=== PATIENT | female | born 1980 | race Caucasian/White ===

== ENCOUNTER 2017-05-06 13:51 | Emergency (ER) | payer BC ==
[~2017-05-06] VITALS: Ht 162.5 cm; Wt 79.4 kg
[~2017-05-06 13:51] MED LIST: ALLEGRA-D 12 HO1 TE1 PO; AMOXICILLIN500 MG PO; AMOXIL500 MG PO; COLACE100 MG PO; DAYPRO600 M1 PO; FERROUS SULFAT325 M1 PO; MEDROL DOSEPAK4 MG PO; Motrin,Rufen800 MG; PRENATAL1 TA1 PO; SKELAXIN800 MG PO; SYNTHROID0.1 MG PO; TRAMADOL HCL50 MG PO; ZITHROMAX Z PA250 MG PO; ZITHROMAX250 MG PO; ZYRTEC10 MG PO
[2017-05-06 13:55] VITALS: BP 136/67
[2017-05-06] MEDS ORDERED: NAPROSYN500 MG PO (14:13)
== END 2017-05-06 15:27 | disposition home or self-care (01) ==
LOC: ED 13:51
DX: S60.011A Contusion of right thumb without damage to nail, initial encounter (principal); R03.0 Elevated blood-pressure reading, without diagnosis of hypertension; W22.8XXA Striking against or struck by other objects, initial encounter; Y93.89 Activity, other specified; Z88.2 Allergy status to sulfonamides; Y92.9 Unspecified place or not applicable; Y99.9 Unspecified external cause status

== ENCOUNTER 2017-10-30 21:16 | Emergency (ER) | payer BC ==
[~2017-10-30] VITALS: Ht 162.5 cm; Wt 77.1 kg
[~2017-10-30 21:16] MED LIST changes: +NAPROSYN500 MG PO; +SYNTHROID,LEV125 MCG PO; -SYNTHROID0.1 MG PO
[2017-10-30 21:17] VITALS: BP 111/65
== END 2017-10-30 23:41 | disposition home or self-care (01) ==
LOC: ED 21:16
DX: M25.552 Pain in left hip (principal); Z79.899 Other long term (current) drug therapy; Z88.2 Allergy status to sulfonamides

== ENCOUNTER 2018-06-03 22:55 | Emergency (ER) | payer BC ==
[2018-06-03 22:57] VITALS: BP 120/80
[2018-06-04] MEDS ORDERED: Motrin,Rufen800 MG PO (00:43)
[2018-06-04] MEDS ORDERED: DOXYCYCLINE100 M3 PO (00:43)
== END 2018-06-04 01:00 | disposition home or self-care (01) ==
LOC: ED 22:55
DX: S06.0X0A Concussion without loss of consciousness, initial encounter (principal); F17.200 Nicotine dependence, unspecified, uncomplicated; Z88.2 Allergy status to sulfonamides; Z79.899 Other long term (current) drug therapy; W50.0XXA Accidental hit or strike by another person, initial encounter; Y93.66 Activity, soccer; Y92.89 Other specified places as the place of occurrence of the external cause; Y99.8 Other external cause status

== ENCOUNTER 2018-09-24 20:14 | Emergency (ER) | payer BC ==
[~2018-09-24] VITALS: Ht 162.5 cm; Wt 68.0 kg
[~2018-09-24 20:14] MED LIST changes: +DOXYCYCLINE100 M3 PO; +Motrin,Rufen800 MG PO
[2018-09-24 20:16] VITALS: BP 117/76
== END 2018-09-24 21:46 | disposition home or self-care (01) ==
LOC: ED 20:14
DX: S90.31XA Contusion of right foot, initial encounter (principal); Z79.899 Other long term (current) drug therapy; Z88.2 Allergy status to sulfonamides; W21.02XA Struck by soccer ball, initial encounter; Y93.66 Activity, soccer; Y92.89 Other specified places as the place of occurrence of the external cause; Y99.8 Other external cause status

== ENCOUNTER 2019-04-04 19:56 | Emergency (ER) | payer BC ==
[~2019-04-04] VITALS: Ht 162.5 cm; Wt 74.8 kg
[2019-04-04 19:58] VITALS: BP 123/80
== END 2019-04-04 21:50 | disposition home or self-care (01) ==
LOC: ED 19:56
DX: R51 Headache (principal); R11.10 Vomiting, unspecified; Z79.899 Other long term (current) drug therapy; Z88.2 Allergy status to sulfonamides

== ENCOUNTER 2020-11-05 17:33 | Emergency (ER) | payer OTHER ==
[~2020-11-05] VITALS: Ht 162.5 cm; Wt 79.4 kg
[2020-11-05 17:39] VITALS: BP 123/75
[2020-11-05 18:20] LABS: BASO % 0.4 % (0.0-1.0); EOS # 0.4 10*3/uL (0.0-0.4); EOS % 3.4 % (1.0-4.0); HEMATOCRIT 40.9 % (37.0-47.0); LYMPH # 2.7 10*3/uL (1.3-4.4); LYMPH % 26.7 % (27.0-41.0); MEAN CELL VOLUME 95.8 fl (81.0-99.0); MEAN CORPUSCULAR HGB 32.6 pg (27.0-31.0); MEAN PLATELET VOLUME 10.6 fl (9.6-12.3); MONO # 0.6 10*3/uL (0.1-1.0); NEUT # 6.5 10*3/uL (2.3-7.9); NEUT % 63.2 % (47.0-73.0); PLATELET COUNT AUTOMATED 275 10*3/uL (130-400); RED BLOOD COUNT 4.27 10*6/uL (4.10-5.10); RED CELL DISTRI WIDTH 11.8 % (0-14.5); WHITE BLOOD COUNT 10.3 10*3/uL (4.8-10.8)
[2020-11-05 18:39] LABS: ALBUMIN 3.5 gm/dl (3.1-4.5); ALKALINE PHOSPHATASE 75 U/L (45-117); BUN 10 mg/dl (7-24); CHLORIDE 105 mmol/L (98-107); CREATININE 1.08 mg/dL (0.55-1.02); LIPASE 85 U/L (73-393); SGOT/AST 14 IU/L (3-35); SGPT/ALT 36 U/L (12-78); SODIUM 139 mmol/L (136-145); TOTAL PROTEIN 7.3 gm/dL (6.4-8.2)
[2020-11-05 19:02] LABS: BILIRUBIN Negative (Negative); BLOOD Trace-Intact (Negative); CLARITY Cloudy (Clear); COLOR Yellow (Yellow); GLUCOSE Negative (Negative); KETONE Negative (Negative); LEUKO ESTERASE Negative (Negative); NITRITE Negative (Negative); SPECIFIC GRAVITY <= 1.005 (1.001-1.030); UROBILINOGEN 0.2 E.U./dl (0.0-1.0)
[2020-11-05 19:17] LABS: BACTERIA 1+; EPITHELIAL CELLS 31-40; WBC 0-2 wbc/hpf (0-5)
[2020-11-05] MEDS ORDERED: MEDROL DOSEPAK4 MG PO (19:37)
== END 2020-11-05 19:46 | disposition home or self-care (01) ==
LOC: ED 17:33
PROVIDERS: Physician Assistant
DX: M54.5 Low back pain (principal); Z79.899 Other long term (current) drug therapy; Z88.2 Allergy status to sulfonamides

== ENCOUNTER → 2022-01-13 | Outpatient (CLI) | payer OTHER | END | disposition home or self-care (01) | LOC: RAD 10:54 | PROVIDERS: ATTEND Chiropractor | DX: M54.50 Low back pain, unspecified (principal) ==